=== PATIENT | female | born 1950 | race Native Hawaiian/Other Pacific Islander ===

== ENCOUNTER 2022-04-13 16:08 | Emergency (ER) | payer MEDICAID ==
[2022-04-13] MEDS ORDERED: INSU100V SQ (16:45)
[2022-04-13] MEDS ORDERED: LISI-892 PO (16:45)
[2022-04-13] MEDS ORDERED: [UNRECOGNIZED DRUG - OTHER] CERV (16:45)
[2022-04-13] MEDS ORDERED: ASPI-81 PO (16:45)
[2022-04-13 17:05] LABS: COVID AG,FIA SOURCE NASAL SWAB
[2022-04-13] MEDS ORDERED: INSU100I26 SQ (17:33)
[2022-04-13 17:35] LABS: INFLUENZA TYPE A NEGATIVE FOR TYPE A (NEGATIVE); INFLUENZA TYPE B NEGATIVE FOR TYPE B (NEGATIVE)
[2022-04-13 17:36] LABS: BASOPHILS % (AUTO) 0.1 % (0.0-2.0); EOSINOPHILS % (AUTO) 0.2 % (1.0-6.0); HEMATOCRIT 35.9 % (36-46); HEMOGLOBIN 11.2 g/dL (12.0-16.0); LYMPHOCYTES # (AUTO) 0.8 K/uL (1.0-4.8); LYMPHOCYTES % (AUTO) 6.7 % (22.0-44.0); MEAN CORPUSCULAR HEMOGLOBIN 26.1 pg (26.0-34.0); MEAN CORPUSCULAR HGB CONC 31.2 G/dL (31.0-37.0); MEAN CORPUSCULAR VOLUME 84 fL (80-100); MONOCYTES # (AUTO) 0.3 K/uL (0.1-1.0); MONOCYTES % (AUTO) 2.6 % (2.0-9.0); NEUTROPHILS # (AUTO) 10.9 K/uL (1.8-7.7); PLATELET COUNT (AUTO) 243 K/uL (150-450); RED CELL DISTRIBUTION WIDTH 14.1 % (11.5-14.5)
[2022-04-13 17:36] LABS: GLUCOSE,POINT OF CARE 141 MG/DL (70-110)
[2022-04-13 17:38] LABS: NEUTROPHILS % (AUTO) 90.4 % (40.0-70.0)
[2022-04-13 17:45] LABS: CALCIUM, TOTAL 10.1 mg/dL (8.8-10.5); CREATININE 2.04 mg/dL (0.60-1.30); POTASSIUM 4.2 mmol/L (3.5-5.1)
[2022-04-13] MEDS ORDERED: FentaNYL CITRATE PF 100 MCG/2 ML VIAL IVP ONE (17:45)
[2022-04-13] MEDS ORDERED: ONDANSETRON HCL 4 MG/2 ML VIAL IVP ONE (17:45)
[2022-04-13] MEDS ORDERED: SODIUM CHLORIDE 0.9% 1,000 ML IV ONE (17:45)
[2022-04-13 17:55] LABS: ALBUMIN 4.7 g/dL (3.4-5.0); BILIRUBIN,TOTAL 0.4 mg/dL (0.1-1.0); TOTAL PROTEIN, SERUM 9.9 g/dL (6.4-8.2)
[2022-04-13] MEDS ORDERED: ATOR40TA28 PO (17:58)
[2022-04-13] MEDS ORDERED: SIMV-259 PO (17:58)
[2022-04-13] MEDS ORDERED: DOCU-385 PO (17:58)
[2022-04-13] MEDS ORDERED: CETI-450 PO (17:58)
[2022-04-13 18:02] LABS: PLATELET MORPHOLOGY COMMENT LARGE PLTS PRESENT
[2022-04-13] MEDS ORDERED: EMPA10TA3 PO (19:34)
[2022-04-13] MEDS ORDERED: LISI-893 PO (19:34)
[2022-04-13] MEDS ORDERED: SODIUM CHLORIDE 0.9% 500 ML IV ONE (21:30)
[2022-04-13 22:44] VITALS: BP 123/61
== END 2022-04-13 23:04 | disposition home or self-care (01) ==
LOC: EMS 16:15 → EDSEX 16:15 → EMS 23:04
DX: R11.2 Nausea with vomiting, unspecified (principal); E11.9 Type 2 diabetes mellitus without complications; E78.00 Pure hypercholesterolemia, unspecified; I10 Essential (primary) hypertension; M19.90 Unspecified osteoarthritis, unspecified site; Z20.822 Contact with and (suspected) exposure to COVID-19
CPT/HCPCS: 99285; 74176; 96374; 76700; 71045; 96361; 96375; 87426; 80053; 82550; 82962; 83690; 83880; 84484; 85025; 87804; 93005; J3010; J2405; J7030; J7040